=== PATIENT | male | born 1950 | race Caucasian/White ===

== ENCOUNTER 2017-05-09 14:19 | Emergency (ER) | payer MEDICARE, MEDICAID ==
[~2017-05-09] VITALS: Ht 182.9 cm; Wt 120.5 kg
[2017-05-09 14:19] VITALS: BP 152/75; PULSE 92; RESP 18; TEMP 97.7; O2SAT 97
[2017-05-09 15:41] VITALS: BP 140/98; PULSE 85; RESP 14; O2SAT 97
--- NOTE | 2017-05-09 15:41 | PD ---
HPI Chief Complaint: Cardiac Complaint Time Seen by Provider: 15:21 Travel History International Travel<30 days: No Contact w/Intl Traveler<30days: No History of Present Illness HPI 66 y/o male presents with new [place] his ear to be irrigated. He states that he is already on ear drops. He states he has been having intermittent palpitations over the past couple of days. He denies any other concurrent complaints. Quality is irregular. Duration is couple of days. He denies prior history of this. [facility] Past Medical History Medical History: Denies Significant Hx Past Surgical History Surgical History: No Previous Surgery Social History Tobacco Use: No Allergies-Medications Reported Meds & Prescriptions Reported Meds & Active Scripts Active Metoprolol Tartrate 25 Mg Tab 25 Mg PO BID hold for heart rate less then 60 Review of Systems Except as stated in HPI: all other systems reviewed are Neg Physical Exam Narrative GENERAL: 66-year-old male in no apparent distress SKIN: Focused skin assessment warm/dry. HEAD: Atraumatic. Normocephalic. EYES: Pupils equal and round. No scleral icterus. No injection or drainage. ENT: No nasal bleeding or discharge. Mucous membranes pink and moist. NECK: Trachea midline. No JVD. CARDIOVASCULAR: irregular rate and rhythm. RESPIRATORY: No accessory muscle use. No increased effort MUSCULOSKELETAL: No obvious deformities. No clubbing. No cyanosis. No edema. NEUROLOGICAL: Awake and alert. No obvious cranial nerve deficits. Motor grossly within normal limits. Normal speech. PSYCHIATRIC: Appropriate mood and affect; insight and judgment normal. Data Data Last Documented VS Vital Signs Date Time Temp Pulse Resp B/P (MAP) Pulse Ox O2 Delivery O2 Flow Rate FiO2 05/09/17 17:23 93 17 143/94 (110) 97 Room Air 05/09/17 14:19 97.7 Orders Orders Electrocardiogram (05/09/17 14:41) Complete Blood Count With Diff (05/09/17 14:41) Basic Metabolic Panel (Bmp) (05/09/17 14:41) Ckmb (Isoenzyme) Profile (05/09/17 14:41) Troponin I (05/09/17 14:41) Chest, Single Ap (05/09/17 14:41) Iv Access Insert/Monitor (05/09/17 14:41) Ecg Monitoring (05/09/17 14:41) Oxygen Administration (05/09/17 14:41) Oximetry (05/09/17 14:41) Magnesium (Mg) (05/09/17 16:00) Thyroid Stimulating Hormone (05/09/17 16:00) CKMB (05/09/17 16:00) CKMB% (05/09/17 16:00) Ed Discharge Order (05/09/17 17:24) Labs Laboratory Tests Test 05/09/17 16:00 White Blood Count 9.7 TH/MM3 Red Blood Count 4.40 MIL/MM3 Hemoglobin 14.2 GM/DL Hematocrit 40.3 % Mean Corpuscular Volume 91.6 FL Mean Corpuscular Hemoglobin 32.2 PG Mean Corpuscular Hemoglobin Concent 35.1 % Red Cell Distribution Width 13.7 % Platelet Count 234 TH/MM3 Mean Platelet Volume 7.8 FL Neutrophils (%) (Auto) 68.7 % Lymphocytes (%) (Auto) 21.4 % Monocytes (%) (Auto) 8.0 % Eosinophils (%) (Auto) 1.4 % Basophils (%) (Auto) 0.5 % Neutrophils # (Auto) 6.7 TH/MM3 Lymphocytes # (Auto) 2.1 TH/MM3 Monocytes # (Auto) 0.8 TH/MM3 Eosinophils # (Auto) 0.1 TH/MM3 Basophils # (Auto) 0.1 TH/MM3 CBC Comment DIFF FINAL Differential Comment Blood Urea Nitrogen 14 MG/DL Creatinine 1.02 MG/DL Random Glucose 94 MG/DL Calcium Level 8.8 MG/DL Magnesium Level 1.9 MG/DL Sodium Level 142 MEQ/L Potassium Level 3.9 MEQ/L Chloride Level 108 MEQ/L Carbon Dioxide Level 29.1 MEQ/L Anion Gap 5 MEQ/L Estimat Glomerular Filtration Rate 73 ML/MIN Total Creatine Kinase 145 U/L Creatine Kinase MB 1.8 NG/ML Troponin I LESS THAN 0.02 NG/ML Thyroid Stimulating Hormone 3rd Gen 2.310 uIU/ML MDM Medical Decision Making Medical Screen Exam Complete: Yes Emergency Medical Condition: Yes Medical Record Reviewed: Yes (Past history confirmed) Interpretation(s) EKG shows A. fib at 95 without STEMI criteria CBC & BMP Diagram 05/09/17 16:00 Calcium Level 8.8, Magnesium Level 1.9 Last 24 hours Impressions Chest X-Ray 05/09/17 1441 Signed Impressions: Service Date/Time: Tuesday, May 09, 2017 16:15 - CONCLUSION: The lungs are clear. Tai Jimenez MD Differential Diagnosis A. fib, thyroid, electrolyte abnormality, SVT Narrative Course EKG shows A. fib that is rate controlled. Will follow blood work and x-ray and reevaluate ed workup with new onset afib, will discuss with cardiology patient updated, Patient denies any new complaints, all questions answered. Patient knows that follow up is incumbent on them and to return to the emergency room immediately if new or worsening symptoms develop. Patient given strict return precautions, vitals reviewed and are normal, agrees to further workup as an outpatient. Physician Communication Physician Communication dr montano states to discharge on a full aspirin and metoprolol 25mg bid and follow in the office Diagnosis Primary Impression: New onset atrial fibrillation Referrals: Josue Montano MD call for appointment Patient Instructions: General Instructions Additional Instructions: take a full dose aspirin every day, return as needed Med/Other Pt SpecificInfo: Prescription(s) given Scripts Metoprolol Tartrate (Metoprolol Tartrate) 25 Mg Tab 25 MG PO BID, #60 TAB 0 Refills hold for heart rate less then 60 Prov: Ana M Veloz MD 05/09/17 Disposition: 01 DISCHARGE HOME Condition: Stable Ana M Veloz MD May 09, 2017 15:41
[2017-05-09 15:42] VITALS: O2SAT 97
[2017-05-09 16:30] LABS: AUTOMATED NEUTROPHIL # 6.7 TH/MM3 (1.8-7.7); BASOPHIL # 0.1 TH/MM3 (0-0.2); BASOPHIL % 0.5 % (0.0-2.0); EOSINOPHIL # 0.1 TH/MM3 (0-0.4); EOSINOPHIL % 1.4 % (0.0-4.0); HEMATOCRIT 40.3 % (39.0-51.0); HEMOGLOBIN 14.2 GM/DL (13.0-17.0); LYMPH % 21.4 % (9.0-44.0); LYMPHOCYTE # 2.1 TH/MM3 (1.0-4.8); MEAN CELL VOLUME 91.6 FL (80.0-100.0); MEAN CORPUSCULAR HEMOGLOBIN 32.2 PG (27.0-34.0); MEAN CORPUSCULAR HGB CONC 35.1 % (32.0-36.0); MEAN PLATELET VOLUME 7.8 FL (7.0-11.0); MONOCYTE # 0.8 TH/MM3 (0-0.9); NEUT % 68.7 % (16.0-70.0); PLATELET COUNT 234 TH/MM3 (150-450); RED CELL DISTRIBUTION WIDTH 13.7 % (11.6-17.2); WHITE BLOOD COUNT 9.7 TH/MM3 (4.0-11.0)
--- NOTE | 2017-05-09 16:32 | RADRPT ---
EXAM DATE/TIME: 05/09/2017 16:15 [facility] COMPARISON: No previous studies available for comparison. INDICATIONS : Chest pain. MEDICAL HISTORY : None. SURGICAL HISTORY : None. ENCOUNTER: Initial ACUITY: 1 day PAIN SCORE: 0/10 LOCATION: Bilateral chest FINDINGS: A single view of the chest demonstrates the lungs to be symmetrically aerated without evidence of mas s, infiltrate or effusion. The cardiomediastinal contours are unremarkable. Osseous structures are intact. CONCLUSION: The lungs are clear. Tai Jimenez MD on May 09, 2017 at 16:31 Board Certified Radiologist. This report was verified electronically.
[2017-05-09 16:50] LABS: BICARBONATE 29.1 MEQ/L (21.0-32.0); BLOOD UREA NITROGEN 14 MG/DL (7-18); CALCIUM 8.8 MG/DL (8.5-10.1); CHLORIDE 108 MEQ/L (98-107); CREATININE 1.02 MG/DL (0.60-1.30); GLOMERULAR FILTRATION RATE 73 ML/MIN (>89); GLUCOSE,RANDOM 94 MG/DL (74-106); MAGNESIUM 1.9 MG/DL (1.5-2.5); SODIUM (NA) 142 MEQ/L (136-145)
[2017-05-09 17:00] LABS: TROPONIN I LESS THAN 0.02 NG/ML (0.02-0.05)
[2017-05-09 17:23] VITALS: BP 143/94; PULSE 93; RESP 17; O2SAT 97
[2017-05-09] MEDS ORDERED: METO25TA3 PO (17:25)
--- NOTE | 2017-05-09 23:16 | EKG ---
Date Performed: 05/09/2017 Time Performed: 15:34:40 PTAGE: 66 years EKG: ATRIAL FIBRILLATION NONSPECIFIC T-WAVE ABNORMALITY ABNORMAL RHYTHM ECG NO PREVIOUS TRACING DOCTOR: Dev Melendez Interpretating Date/Time 05/09/2017 23:14:37
== END 2017-05-09 17:58 | disposition home or self-care (01) ==
LOC: NEPC 14:19
DX: I48.91 Unspecified atrial fibrillation (principal); R94.31 Abnormal electrocardiogram [ECG] [EKG]
CPT/HCPCS: 71045; 80048; 82550; 82552; 83735; 84443; 84484; 85025; 93005